=== PATIENT | male | born 1950 ===

== ENCOUNTER 2018-06-28 08:29 | Day surgery (SDC) | payer MEDICARE, MEDICAID ==
[2016-01-30 15:50] VITALS: BMI 40.2
[2018-06-28] MEDS ORDERED: Gentamicin 80 mg in 0.9% NS 160 MG/200 ML BAG IVPB ONE (10:48)
[2018-06-28] MEDS ORDERED: cefTRIAXone 1 gm 1 GM/100 ML BAG IVPB ONE (10:48)
[2018-06-28] MEDS ORDERED: Lidocaine 2% Jelly (Uro-Jet) ONE (10:49)
[2018-06-28] MEDS ORDERED: Midazolam 2 MG/2 ML VIAL ONE (10:58)
[2018-06-28] MEDS ORDERED: Propofol 10 mg/ml Inj (20 ML) ONE (10:58)
[2018-06-28] MEDS ORDERED: HYDROmorphone 0.5 mg/0.5 ml ISec IVP PRN (12:15)
[2018-06-28 13:41] VITALS: RESP 16; O2SAT 99
[2018-06-28 13:42] LABS: URINE BILIRUBIN NEGATIVE (NEGATIVE); URINE BLOOD NEGATIVE (NEGATIVE); URINE CLARITY Clear (Clear); URINE COLOR Yellow (YELLOW); URINE GLUCOSE (UA) NORMAL (Normal); URINE LEUKOCYTE ESTERASE NEG Leu/uL (Negative); URINE PROTEIN NEGATIVE (NEGATIVE); URINE UROBILINOGEN NORMAL mg/dL (0.2-1.0)
[2018-06-28 13:44] VITALS: BP 125/69; PULSE 58; TEMP 98
--- NOTE | 2018-06-28 14:37 | OP ---
PROCEDURE DATE: 06/28/2018 PREOPERATIVE DIAGNOSES: Elevated prostate specific antigen of 5.25 and a right firm prostate and dysuria. POSTOPERATIVE DIAGNOSES: Elevated prostate specific antigen of 5.25 and a right firm prostate, dysuria, benign prostatic hyperplasia. PROCEDURES: Cystoscopy, transrectal ultrasound diagnostic, transrectal ultrasound guidance, and prostatic biopsy. SURGEON: Robel Myers MD DESCRIPTION OF PROCEDURE: The patient was interviewed in the holding area. He had stopped all blood thinners over a week ago and was instructed that when he goes home and the unlikely chance he gets high fever or chills, is to call me immediately and/or go right to the emergency room. He was also told to call the office today to make a followup appointment for one week for the results. The patient was brought to the operating room. He Was placed under general anesthesia in lithotomy position, prepped and draped in the usual fashion. He was premedicated with Rocephin 1 g IV piggyback and 160 mg of gentamicin IV piggyback. Cystoscopy with a 21-Norwegian scope revealed an enlarged, obstructing prostate. The bladder had smooth mucosa without any tumors or calculi or areas of erythema. Urine was sent for urinalysis, culture and sensitivity, and urinary cytology and then the scope was removed. Digital rectal exam was performed to confirm that there was asymmetry in both lobes of the prostate with the right being diffusely somewhat firmer without localizing nodules. We then cleansed the rectum with Betadine and proceeded with transrectal ultrasound diagnostic, which revealed a 35.2 cm prostate without any localizing lesions. We then proceeded with biopsies, sending two biopsies per each of six for a total of 12. We then maintained pressure to promote hemostasis with the transducer and upon removal, no significant bleeding was noted. The patient tolerated the procedure well. Robel Myers MD
== END 2018-06-28 13:35 | disposition home or self-care (01) ==
LOC: C.SDS 08:29
PROVIDERS: ATTEND Urology
DX: R97.20 Elevated prostate specific antigen [PSA] (principal); R30.0 Dysuria
CPT/HCPCS: 52000; 55700; 81001; 82948; 87086; 88305; J0696; J1580; J7120

== ENCOUNTER 2018-12-16 01:06 | Emergency (ER) | payer MEDICARE, MEDICAID ==
[2018-12-16 01:06] VITALS: BMI 40.2
[2018-12-16 01:51] LABS: BASO % 0.2 % (0.0-2.0); EOS # 0.6 K/uL (0.0-0.7); EOS % 6.9 % (0.0-4.0); HEMOGLOBIN 13.9 g/dL (12.0-18.0); LYMPH % 34.2 % (20.0-40.0); MEAN CELL VOLUME 93.7 fL (80.0-94.0); MEAN CORPUSCULAR HEMOGLOBIN 31.8 pg (27.0-31.0); MEAN PLATELET VOLUME 8.8 fL (7.2-11.7); MONO # 0.9 K/uL (0.0-0.8); MONO % 10.2 % (0.0-10.0); NEUT # 4.3 K/uL (1.8-7.0); NEUT % 48.5 % (50.0-75.0); NRBC % 0.1 % (0.0-2.0); RBC 4.37 Mil/uL (4.40-5.90); RED CELL DISTRIBUTION WIDTH 13.3 % (11.5-14.5); WHITE BLOOD COUNT 8.8 K/uL (4.8-10.8)
--- NOTE | 2018-12-16 01:54 | C.PDOC ---
History Of Present Illness 68-year-old male presents to the ED for evaluation of left shoulder pain which began around two weeks ago. Patient states his PMD has prescribed him anti- inflammatory medication which he takes infrequently and took once this evening. Patient states his symptoms are worse with heat application, such as taking hot showers. Patient states his pain is digitally and positionally reproducible and denies chest pressure and shortness of breath. Time Seen by Provider: 12/16/18 01:33 Chief Complaint (Nursing): Chest Pain History Per: Patient History/Exam Limitations: no limitations Onset/Duration Of Symptoms: Other (two weeks ) Current Symptoms Are (Timing): Still Present Quality: "Pain" Additional History Per: Patient Past Medical History Reviewed: Historical Data, Nursing Documentation, Vital Signs Vital Signs: Last Vital Signs Temp 98.1 F 12/16/18 01:13 Pulse 61 12/16/18 01:13 Resp 16 12/16/18 01:13 BP 151/77 H 12/16/18 01:13 Pulse Ox 95 12/16/18 01:13 Primary Care Provider: Ethan Rivero - Medical History PMH: Anxiety, Arthritis, Cardia Arrhythmia, CVA, Depression, Diabetes, HTN, Hypercholesterolemia Surgical History: No Surg Hx - [facility] Procedures COLONOSCOPY (03/21/14) Family History: States: Unknown Family Hx - Social History Hx Tobacco Use: No Hx Alcohol Use: No Hx Substance Use: No - Immunization History Hx Tetanus Toxoid Vaccination: No Hx Influenza Vaccination: No Hx Pneumococcal Vaccination: No Review Of Systems Cardiovascular: Negative for: Other (chest pressure ) Respiratory: Negative for: Shortness of Breath Musculoskeletal: Positive for: Shoulder Pain (left ) Physical Exam - Physical Exam Appears: Non-toxic, No Acute Distress, Other (obese, male, in no apparent distress ) Skin: Normal Color, Warm, Dry, No Rash Head: Atraumatic, Normacephalic Eye(s): bilateral: Normal Inspection Oral Mucosa: Moist Neck: Normal ROM, Supple Chest: Symmetrical, No Deformity, Tenderness (to left lateral pectoralis and superficial shoulder region. intercostal tenderness to left lateral region and mid-clavicular line, around T2,T3, and T4) Cardiovascular: Rhythm Regular, No Murmur Respiratory: Normal Breath Sounds, No Rales, No Rhonchi, No Wheezing Extremity: Normal ROM, Capillary Refill (less than 2 seconds ) Neurological/Psych: Oriented x3, Normal Speech, Normal Cognition ED Course And Treatment - Laboratory Results Result Diagrams: 12/16/18 01:48 12/16/18 01:48 Lab Interpretation: Normal (trop neg.) ECG: Interpreted By Me, Viewed By Me ECG Rhythm: Sinus Rhythm Interpretation Of ECG: Normal Sinus Rhythm at rate 63bpm. Rate From EC O2 Sat by Pulse Oximetry: 95 (on RA ) Pulse Ox Interpretation: Normal - Radiology CXR: Interpreted by Me CXR Interpretation: Yes: No Acute Disease Progress Note: Bloodwork, CXR, EKG ordered and reviewed. Toradol IVP, ice pack to L shoulder given. Reevaluation Time: 02:48 Reassessment Condition: Improved Medical Decision Making Medical Decision Making: musculoskeletal L shoulder/pectoralis/chest wall discomfort, no rash to suspect zoster normal labs/EKG improved wtih NSAIDS/Ice Disposition Doctor Will See Patient In The: Office Counseled Patient/Family Regarding: Studies Performed, Diagnosis - Disposition Disposition: HOME/ ROUTINE Disposition Time: 02:48 Condition: GOOD Forms: [employer] ([employer]wana) - Clinical Impression Clinical Impression: Chest pain, musculoskeletal - PA / [employer] / Resident Statement MD/DO has reviewed & agrees with the documentation as recorded. - Scribe Statement The provider has reviewed the documentation as recorded by the Scribe (Estela Paul) Provider Attestation: All medical record entries made by the Scribe were at my direction and personally dictated by me. I have reviewed the chart and agree that the record accurately reflects my personal performance of the history, physical exam, medical decision making, and the department course for this patient. I have also personally directed, reviewed, and agree with the discharge instructions and disposition.
[2018-12-16 02:03] LABS: ALB/GLOB RATIO 1.4 (1.0-2.1); ALBUMIN 4.4 g/dL (3.5-5.0); ALT/SGPT 32 U/L (21-72); AST/SGOT 34 U/L (17-59); BLOOD UREA NITROGEN 21 mg/dL (9-20); CALCIUM 9.5 mg/dl (8.6-10.4); GFR NON-AFRICAN AMERICAN > 60
[2018-12-16 02:58] VITALS: BP 132/79; PULSE 68; RESP 12; TEMP 97.2; O2SAT 98
--- NOTE | 2018-12-16 11:12 | RAD ---
Date of service: 12/16/2018 PROCEDURE: CHEST RADIOGRAPH, 1 VIEW HISTORY: SOB COMPARISON: Comparison is made with 06/20/2018 FINDINGS: LUNGS: No evidence of new infiltrate or consolidation in the lungs. PLEURA: No pneumothorax or pleural fluid seen. CARDIOVASCULAR: No aortic atherosclerotic calcification present. Normal. OSSEOUS STRUCTURES: No significant abnormalities. VISUALIZED UPPER ABDOMEN: Normal. OTHER FINDINGS: None. IMPRESSION: No active disease.
--- NOTE | 2018-12-18 19:50 | CARD ---
APPROVED REPORT Date of service: 12/16/2018 EKG Measurement Heart [id number] <Conclusion> Normal sinus rhythm Normal ECG
== END 2018-12-16 03:11 | disposition home or self-care (01) ==
LOC: C.ER 01:06
DX: R07.89 Other chest pain (principal)
CPT/HCPCS: 71045; 80053; 82948; 84484; 85025; 93005; 96374; 99283; J1885